=== PATIENT | male | born 1990 | race African-American/Black ===

== ENCOUNTER 2016-09-29 00:04 | Emergency (ER) | payer OTHER ==
[~2016-09-29] VITALS: Ht 182.9 cm; Wt 111.1 kg
[2016-09-29] MEDS ORDERED: PROAIR HFA8.5 GM IH (02:55)
[2016-09-29 03:29] VITALS: BP 120/70
== END 2016-09-29 03:28 | disposition home or self-care (01) ==
LOC: EME 00:04
DX: J45.901 Unspecified asthma with (acute) exacerbation (principal)
CPT/HCPCS: 94640; 99281; 99284; J8540

== ENCOUNTER 2016-11-22 20:12 | Observation (INO) | payer OTHER ==
[~2016-11-22] VITALS: Ht 182.9 cm; Wt 111.6 kg
[~2016-11-22 20:12] MED LIST: PROAIR HFA8.5 GM IH
[2016-11-22 21:40] LABS: HEMATOCRIT 44.9 % (38.0-50.0); MCH 29.8 PG (29.0-34.0); MCHC 32.7 G/DL (30.0-36.0); MCV 90.9 FL (86-99); MEAN PLAT.VOLUME 10.4 uM^3 (9.0-12.4); PLATELET COUNT 212 K/uL (156-360); RBC DIS.WIDTH-CV 12.9 % (11.8-14.6); RBC DIS.WIDTH-SD 43.2 % (39-53); RED BLOOD COUNT 4.94 M/uL (4.00-5.50); WHITE BLOOD COUNT 10.6 K/uL (4.1-10.2)
[2016-11-22 21:49] LABS: CHLORIDE 103 mEq/L (99-109); POTASSIUM 3.8 mEq/L (3.7-5.4); SODIUM 143 mEq/L (136-147)
[2016-11-22 21:51] LABS: GLUCOSE 116 mg/dL (70-99)
[2016-11-22 21:52] LABS: ANION GAP 15 MEQ/L (2-14)
[2016-11-22 21:55] LABS: GFR ESTIMATE (CALCULATED) > 59 mL/min/
[2016-11-22 21:56] LABS: UREA NITROGEN (BUN) 9 mg/dL (9-23)
[2016-11-23 04:40] VITALS: BP 142/71
[2016-11-23 07:35] VITALS: BP 140/82
[2016-11-23 11:21] VITALS: BP 128/66
[2016-11-23 16:21] VITALS: BP 125/58
[2016-11-23 20:24] VITALS: BP 138/77
[2016-11-24 00:27] VITALS: BP 119/58
[2016-11-24 03:43] VITALS: BP 122/58
[2016-11-24 07:40] VITALS: BP 126/56
[2016-11-24] MEDS ORDERED: AMOX TR-K CLV1 EAC4 PO (08:17)
[2016-11-24] MEDS ORDERED: PROAIR HFA8.5 GM IH (08:17)
[2016-11-24] MEDS ORDERED: ADVAIR HFA120 INHALA IH (08:18)
[2016-11-24] MEDS ORDERED: PREDNISONE10 MG PO (08:18)
== END 2016-11-24 10:48 | disposition home or self-care (01) ==
LOC: RME 20:12 → EME 20:12 → EDOF 11-23 03:26 → 2EAST 11-23 03:26 → EDOF 11-23 03:26 → ENRESERV 11-23 03:27 → 2EAST 11-23 04:31
PROVIDERS: Physician Assistant Medical
DX: J45.41 Moderate persistent asthma with (acute) exacerbation (principal); R09.02 Hypoxemia; Z83.3 Family history of diabetes mellitus; Z82.0 Family history of epilepsy and other diseases of the nervous system
CPT/HCPCS: 71020; 80048; 85027; 94640; 94640 76; 94799; 99202; 99281; 99285; G0378; J2930; J3475